=== PATIENT | male | born 1980 | race American Indian/Alaskan Native ===

== ENCOUNTER 2019-08-26 08:53 | Emergency (ER) | payer MEDICARE ==
[2019-08-26] MEDS ORDERED: ceFAZolin 1 GM VIAL IM ONE (09:14)
[2019-08-26] MEDS ORDERED: MORPHINE 4 MG/1 ML INJ IM STA (09:14)
[2019-08-26 09:16] VITALS: BP 135/70
[2019-08-26] MEDS ORDERED: TETANUS,DIPH,PERTUSS(ACELL) VACCINE 0.5 ML SYRINGE IM ONE (09:16)
[2019-08-26] MEDS ORDERED: ceFAZolin 1 GM VIAL ONE (09:18)
[2019-08-26] MEDS ORDERED: ONDANSETRON 4 MG/2 ML INJ ONE (09:18)
[2019-08-26] MEDS ORDERED: MORPHINE 4 MG/1 ML INJ ONE (09:18)
[2019-08-26] MEDS ORDERED: WATER FOR INJ Sterile (PF) 10 ML ONE (09:19)
[2019-08-26] MEDS ORDERED: ONDANSETRON 4 MG/2 ML INJ IV ONE (09:35)
--- NOTE | 2019-08-26 09:51 | Emergency Department Report ---
Upper Extremity - HPI Chief Complaint: Wound/Laceration Stated Complaint: R HAND LAC Time Seen by Provider: 08/26/19 09:13 Upper Extremity: Right Thumb Occurred When: Today Mechanism: Other (Skil saw versus thumb about half an hour prior to arrival) Severity: moderate Symptoms: Yes Deformity, Yes Limited Range of Movement, Yes Numbness, Yes Lac eration or Abrasion ED Review of Systems ROS: Stated complaint: R HAND LAC Other details as noted in HPI Comment: All other systems reviewed and negative ED Past Medical Hx - Past Medical History Previous Medical History?: Yes Hx Psychiatric Treatment: Yes (schziophrenia) - Surgical History Past Surgical History?: No - Social History Smoking Status: Current Every Day Smoker Upper Extremity Exam - Exam General: Vital signs noted. No distress. Alert and acting appropriately. Head and Torso: No HEENT Abnormality, No Neck Tenderness, No Chest/Lungs Abnormality, No Abdominal Tenderness, No Back Tenderness Shoulder Exam: Yes Normal Range of Motion in Shoulder, No Shoulder Tenderness, No Clavicle Tenderness, No Shoulder Deformity, No AC Joint Tenderness Arm Exam: No Arm/Humerus Tenderness, No Arm Deformity Elbow: No Elbow Tenderness, No Normal Range of Motion in Elbow, No Elbow Deformity Forearm: No Forearm Tenderness, No Forearm Deformity, No Pain with Pronation, No Pain with Supination Wrist: Yes Normal ROM in Wrist, No Wrist Tenderness, No Wrist Deformity, No Snuffbox Tenderness, No Pain with Axial Thumb Compression Hand: Yes Hand Tenderness, Yes Hand Deformity, Yes Normal ROM in Digit(s), Yes Tendon Dysfunction, No Digit Tenderness, No Digit(s) Deformity CMS Exam: Yes Broken Skin, Yes Normal Distal Pulses, No Normal Capillary Refill (sluggish to thumb), No Normal Distal Sensation Hand L/R Back: 1 - laceration site greater than 50% depth. Tendons are severed ED Course Vital Signs 08/26/19 09:04 Temperature 98.2 F Pulse Rate 89 Respiratory 18 Rate Blood Pressure 135/70 O2 Sat by Pulse 98 Oximetry - Consultations Consultation #1: 08/26/19 10:04 Case discussed with [facility] for transfer Dr. U Jeremy is excepting ED to ED transfer via ground ED Medical Decision Making - Radiology Data Radiology results: report reviewed, image reviewed (complete fracture to the distal aspect of the proximal phalanges of the first digit with a few avulsion fragments noted) - Medical Decision Making [place] male Skil saw versus right forearm with near-complete relief severed joint. Plan is to transfer to [facility] for definitive treatment. Capillary refills are sluggish pulses 2+ radial Critical care attestation.: If time is entered above; I have spent that time in minutes in the direct care of this critically ill patient, excluding procedure time. ED Disposition Clinical Impression: Thumb fracture, Thumb laceration Disposition: [id number] ANOTHER TYPE HLTHCARE Is pt being admited?: No Does the pt Need Aspirin: No Condition: Fair Referrals: PRIMARY CARE, [Primary Care Provider] - 3-5 Days
--- NOTE | 2019-08-26 09:51 | XRay Report ---
XR hand 2V RT INDICATION / CLINICAL INFORMATION: thumb laceration and pain. COMPARISON: None available. FINDINGS: BONES/JOINT(S): There is a comminuted avulsion type fracture of the distal shaft of the thumb metacar pal with about 1 cm gap between the proximal and distal fracture fragments and mild ulnar and volar d isplacement of the distal fracture fragment. No other fracture is identified. SOFT TISSUES: No significant abnormality. ADDITIONAL FINDINGS: None. Signer Name: Dakota Rubin MD Signed: 08/26/2019 9:47 AM Workstation Name: [id number]
[2019-08-26] MEDS ORDERED: HYDROmorphone 1 MG/1 ML INJ IV ONE (10:03)
== END 2019-08-26 10:57 | disposition other institution (70) ==
LOC: ED 08:53
DX: S62.521A Displaced fracture of distal phalanx of right thumb, initial encounter for closed fracture (principal); S61.011A Laceration without foreign body of right thumb without damage to nail, initial encounter; F20.89 Other schizophrenia; F17.200 Nicotine dependence, unspecified, uncomplicated; Z88.6 Allergy status to analgesic agent; X58.XXXA Exposure to other specified factors, initial encounter; Y93.89 Activity, other specified; Y92.89 Other specified places as the place of occurrence of the external cause; Y99.8 Other external cause status
CPT/HCPCS: 73120; 90715; 96372; 96374; 96375; 99285; J0690; J1170; J2270; J2405